=== PATIENT | female | born 1930 | race Caucasian/White ===

== ENCOUNTER 2016-11-21 16:00 | Emergency (ER) | payer OTHER, MEDICARE ==
[~2016-11-21] VITALS: Ht 174 cm; Wt 68.5 kg
[~2016-11-21 16:00] MED LIST: ACET325T96 PO; CHOL2000 PO; INVAV1 IV; TPRSR50 PO
[2016-11-21 16:14] VITALS: TEMP 36.8; Ht 174 cm; Wt 68.5 kg
[2016-11-21] MEDS ORDERED: SODIUM CHLORIDE 0.9% 1000ML 500 ML IV STA (17:04)
[2016-11-21] MEDS ORDERED: ONDANSETRON INJ 2 MG/ML 2 ML VIAL IV STA (17:04)
[2016-11-21] MEDS ORDERED: SODIUM CHLORIDE 0.9% 1000ML 1,000 ML IV STA (17:04)
[2016-11-21] MEDS ORDERED: PRMVC TOP (17:26)
[2016-11-21] MEDS ORDERED: LEVO1TAB33 PO (17:26)
[2016-11-21] MEDS ORDERED: GUAISYP4 PO (17:26)
[2016-11-21] MEDS ORDERED: TRMCR130WC TOP (17:26)
[2016-11-21 17:55] VITALS: O2SAT 95
--- NOTE | 2016-11-21 17:55 | DIAGNOSTIC IMAGING REPORT ---
SINGLE VIEW CHEST CLINICAL HISTORY: Weakness. Change in mental status. FINDINGS: 2 AP, portable, upright chest radiographs are compared to study dated 04/12/2016. The examination is degraded by portable technique and patient rotation. The heart is mildly enlarged and there is atherosclerotic calcification of the thoracic aorta. The pulmonary vasculature is noncongested. Enlargement the central pulmonary arteries suggests pulmonary artery hypertension. Emphysema and chronic interstitial thickening are similar to previous. There is no airspace consolidation or pleural effusion. No pneumothorax is seen. The skeletal structures are osteopenic. The bony thorax is grossly intact. IMPRESSION: Cardiac enlargement and emphysema. There is no acute cardiopulmonary abnormality. Electronically signed by: Austin Knott M.D. 11/21/2016 5:53 PM Dictated Date/Time: 11/21/2016 5:52 PM
[2016-11-21 18:06] LABS: BASO % 0.2 %; BASO ABS # 0.02 K/uL (0-0.2); COMPLETE YES; EOS % 1.2 %; HEMATOCRIT 40.7 % (37-47); IG% 0.8 %; LYMPH % 20.9 %; LYMPH ABS # 1.89 K/uL (1.2-3.4); MEAN CORPUSCULAR HEMOGLOBIN 31.3 pg (25-34); MEAN CORPUSCULAR HGB CONC 36.4 g/dl (32-36); MEAN PLATELET VOLUME 9.3 fL (7.4-10.4); MONO % 7.6 %; NEUT % 69.3 %; PLATELET COUNT 280 K/uL (130-400); RED BLOOD COUNT 4.73 M/uL (4.2-5.4); WHITE BLOOD COUNT 9.05 K/uL (4.8-10.8)
[2016-11-21 18:10] LABS: ALT/SGPT 19 U/L (12-78); AST/SGOT 16 U/L (15-37); BLOOD UREA NITROGEN 14 mg/dl (7-18); BUN/CREATININE RATIO 10.9 (10-20); CALCIUM 9.2 mg/dl (8.5-10.1); CARBON DIOXIDE 28 mmol/L (21-32); CHLORIDE 93 mmol/L (98-107); GLUCOSE 90 mg/dl (70-99); POTASSIUM 4.1 mmol/L (3.5-5.1); SODIUM 130 mmol/L (136-145)
[2016-11-21 18:21] LABS: ALB/GLOB RATIO 1.2 (0.9-2); ALKALINE PHOSPHATASE 50 U/L (45-117)
--- NOTE | 2016-11-21 18:24 | EMERGENCY ROOM VISIT NOTE ---
History Report prepared by Mitchell: Jossie Richardson Under the Supervision of: Dr. Austin Santos M.D. First contact with patient: 16:57 Chief Complaint: FLU LIKE SX Stated Complaint: FLU LIKE SYMPTOMS, WEAKNESS, KIDNEY ISSUES History of Present Illness The patient is an 86 year old female who presents to the Emergency Room with complaints of persistent weakness that began prior to arrival. She currently rates her discomfort as a 7/10 in severity. Per records, the patient has a history of resistant UTIs. Her last creatinine level was 1.6. Records indicate that the patient was recently started on Levaquin and was sent to the emergency department today for further evaluation and work up. The patient states that she has been experiencing a productive cough, fatigue, nausea, and calf cramping. The patient's daughter notes that the patient has been becoming short of breath with exertion. The patient denies any personal history of asthma or COPD. The patient states that she is unsure if her nausea is related to her UTI or the Levaquin she has been placed on. She states that she has been experiencing urinary symptoms. The patient states that she is unsure why she continues to get UTIs. She additionally notes a decrease in appetite and notes a four pound weight loss. The patient's daughter states that the patient was originally placed on the Levaquin for her productive cough, noting that they did not want the patient's symptoms progressing into pneumonia or bronchitis. The patient denies any fever or vomiting. Source of History: patient, family (daughter) Onset: prior to arrival Position: other (global) Symptom Intensity: 7/10 Quality: other (weakness) Timing: other (persistent) Associated Symptoms: + SOB, + cough, + fatigue, + nausea Note: Associated symptoms: decrease in appetite, weight gain of 4 lbs, calf cramping Review of Systems See HPI for pertinent positives & negatives. A total of 10 systems reviewed and were otherwise negative. Past Medical & Surgical Medical Problems: (1) Atrial fibrillation (2) CKD (chronic kidney disease), stage III (3) HLD (hyperlipidemia) (4) HTN (hypertension) (5) Hypothyroidism (6) UTI (urinary tract infection) Surgical Problems: (1) H/O breast biopsy (2) H/O colonoscopy (3) H/O cystoscopy (4) H/O tubal ligation (5) H/O vein stripping (6) History of appendectomy (7) History of hip replacement (8) History of partial hysterectomy Family History Noncontributory d/t age Social History Smoking Status: Former Smoker Drug Use: none Marital Status: Housing Status: lives with family Occupation Status: retired Current/Historical Medications Scheduled Aspirin (Aspirin EC Low Dose), 81 MG PO DAILY Estrogens, Conjugated (Premarin), 1 APPLN TOP 3XWK Levofloxacin (Levaquin), 500 MG PO DAILY Levothyroxine Sodium (Synthroid), 75 MCG PO DAILY Metoprolol Succinate (Metoprolol Succinate ER), 75 MG PO DAILY Simvastatin (Zocor), 20 MG PO QPM Triamcinolone Acet (Aristocort 0.1%), 1 APPLN TOP BID Scheduled PRN Guaifenesin/Codeine (Robitussin-Ac Syrup), 5 ML PO Q4H PRN for Cough Allergies Coded Allergies: Adhesives (Verified Allergy, Mild, SOME BANDAIDS MAKE SKIN AROUND IT RED, 04/18/16) Sulfa Drugs (Verified Allergy, Unknown, UNKNOWN RXN, 04/18/16) UNKNOWN REACTION Erythromycin (Verified Adverse Reaction, Mild, STOMACH PAIN, 04/18/16) Morphine (Verified Adverse Reaction, Mild, HALLUCINATIONS, 04/18/16) HALLUCINATIONS Physical Exam Vital Signs Date Time Temp Pulse Resp B/P Pulse Ox O2 Delivery O2 Flow Rate FiO2 11/21/16 21:50 67 15 191/90 96 11/21/16 21:22 67 15 191/90 96 Room Air 11/21/16 20:05 66 18 184/75 96 Room Air 11/21/16 17:55 95 Room Air 11/21/16 17:53 66 16 205/103 95 Room Air 11/21/16 17:23 71 11/21/16 16:14 36.8 91 18 160/98 97 Room Air Physical Exam GENERAL: Patient is in no acute distress. HEENT: No acute trauma, normocephalic atraumatic, mucous membranes moist, no nasal congestion, no scleral icterus. NECK: No stridor, no adenopathy, no meningismus, trachea is midline. LUNGS: Diminished breath sounds, no wheezing or rhonchi, breath sounds are equal HEART: Slightly irregular, normal rate. No murmurs. ABDOMEN: Soft, nontender, bowel sounds positive, no hernias, no peritonitis. EXTREMITIES: No cyanosis or edema, full range of motion of all the joints without pain or difficulty, no signs for acute trauma. NEUROLOGIC: Oriented x 3, no acute motor or sensory deficits, no focal weakness. SKIN: No rash, no jaundice, no diaphoresis. Medical Decision & Procedures ER Provider Diagnostic Interpretation: X-ray results as stated below per interpretation by me and the radiologist: SINGLE VIEW CHEST CLINICAL HISTORY: Weakness. Change in mental status. FINDINGS: 2 AP, portable, upright chest radiographs are compared to study dated 04/12/2016. The examination is degraded by portable technique and patient rotation. The heart is mildly enlarged and there is atherosclerotic calcification of the thoracic aorta. The pulmonary vasculature is noncongested. Enlargement the central pulmonary arteries suggests pulmonary artery hypertension. Emphysema and chronic interstitial thickening are similar to previous. There is no airspace consolidation or pleural effusion. No pneumothorax is seen. The skeletal structures are osteopenic. The bony thorax is grossly intact. IMPRESSION: Cardiac enlargement and emphysema. There is no acute cardiopulmonary abnormality. Electronically signed by: Austin Knott M.D. 11/21/2016 5:53 PM Dictated Date/Time: 11/21/2016 5:52 PM Laboratory Results 11/21/16 17:30 Red Blood Count 4.73, Mean Corpuscular Volume 86.0, Mean Corpuscular Hemoglobin 31.3, Mean Corpuscular Hemoglobin Concent 36.4, Mean Platelet Volume 9.3, Neutrophils (%) (Auto) 69.3, Lymphocytes (%) (Auto) 20.9, Monocytes (%) (Auto) 7.6, Eosinophils (%) (Auto) 1.2, Basophils (%) (Auto) 0.2, Neutrophils # (Auto) 6.27, Lymphocytes # (Auto) 1.89, Monocytes # (Auto) 0.69, Eosinophils # (Auto) 0.11, Basophils # (Auto) 0.02 11/21/16 17:30 Test 11/21/16 17:30 11/21/16 19:05 White Blood Count 9.05 K/uL (4.8-10.8) Red Blood Count 4.73 M/uL (4.2-5.4) Hemoglobin 14.8 g/dL (12.0-16.0) Hematocrit 40.7 % (37-47) Mean Corpuscular Volume 86.0 fL (80-100) Mean Corpuscular Hemoglobin 31.3 pg (25-34) Mean Corpuscular Hemoglobin Concent 36.4 g/dl (32-36) Platelet Count 280 K/uL (130-400) Mean Platelet Volume 9.3 fL (7.4-10.4) Neutrophils (%) (Auto) 69.3 % Lymphocytes (%) (Auto) 20.9 % Monocytes (%) (Auto) 7.6 % Eosinophils (%) (Auto) 1.2 % Basophils (%) (Auto) 0.2 % Neutrophils # (Auto) 6.27 K/uL (1.4-6.5) Lymphocytes # (Auto) 1.89 K/uL (1.2-3.4) Monocytes # (Auto) 0.69 K/uL (0.11-0.59) Eosinophils # (Auto) 0.11 K/uL (0-0.5) Basophils # (Auto) 0.02 K/uL (0-0.2) RDW Standard Deviation 40.2 fL (36.4-46.3) RDW Coefficient of Variation 12.5 % (11.5-14.5) Immature Granulocyte % (Auto) 0.8 % Immature Granulocyte # (Auto) 0.07 K/uL (0.00-0.02) Anion Gap 9.0 mmol/L (3-11) Est Creatinine Clear Calc Drug Dose 31.9 ml/min Estimated GFR () 43.0 Estimated GFR (Non- 37.1 BUN/Creatinine Ratio 10.9 (10-20) Calcium Level 9.2 mg/dl (8.5-10.1) Total Bilirubin 1.0 mg/dl (0.2-1) Aspartate Amino Transf (AST/SGOT) 16 U/L (15-37) Alanine Aminotransferase (ALT/SGPT) 19 U/L (12-78) Alkaline Phosphatase 50 U/L (45-117) Total Creatine Kinase 80 U/L (26-192) Troponin I < 0.015 ng/ml (0-0.045) Total Protein 7.4 gm/dl (6.4-8.2) Albumin 4.1 gm/dl (3.4-5.0) Globulin 3.3 gm/dl (2.5-4.0) Albumin/Globulin Ratio 1.2 (0.9-2) Thyroid Stimulating Hormone (TSH) 3.140 uIu/ml (0.300-4.500) Free Thyroxine 1.55 ng/dl (0.80-1.60) Urine Color YELLOW Urine Appearance CLEAR (CLEAR) Urine pH 6.0 (4.5-7.5) Urine Specific [place] 1.006 (1.000-1.030) Urine Protein NEG (NEG) Urine Glucose (UA) NEG (NEG) Urine Ketones TRACE (NEG) Urine Occult Blood NEG (NEG) Urine Nitrite NEG (NEG) Urine Bilirubin NEG (NEG) Urine Urobilinogen NEG (NEG) Urine Leukocyte Esterase SMALL (NEG) Urine WBC (Auto) 5-10 /hpf (0-5) Urine RBC (Auto) 0-4 /hpf (0-4) Urine Hyaline Casts (Auto) 0 /lpf (0-5) Urine Epithelial Cells (Auto) >30 /lpf (0-5) Urine Bacteria (Auto) NEG (NEG) Laboratory results reviewed by me. Medications Administered Medications (Trade) Dose Ordered Sig/Freddy Route Start Time Stop Time Status Last Admin Dose Admin Sodium Chloride 500 ml @ 999 mls/hr Q31M STAT IV 11/21/16 17:04 11/21/16 17:34 DC 11/21/16 17:50 999 MLS/HR Sodium Chloride (Nss 1000ml) 1,000 ml @ 200 mls/hr Q5H STAT IV 11/21/16 17:04 11/21/16 21:56 DC 11/21/16 17:04 200 MLS/HR Ondansetron HCl 4 mg 4 mg NOW STAT IV 11/21/16 17:04 11/21/16 17:08 DC 11/21/16 17:49 4 MG Sodium Chloride (Nss 500ml) 500 ml @ 999 mls/hr Q31M STAT IV 11/21/16 19:07 11/21/16 19:37 DC 11/21/16 19:07 999 MLS/HR Albuterol (Ventolin Hfa Inhaler) 2 puffs NOW ONCE INH 11/21/16 21:15 11/21/16 21:16 DC 11/21/16 21:22 2 PUFFS ECG Indication: weakness Rate (beats per minute): 75 Rhythm: sinus rhythm Findings: 1st degree AV block, no acute ischemic change, no ectopy ED Course 1699: The patient was evaluated in room C7. A complete history and physical exam was performed. 1703: Ordered Zofran Inj 4 mg IV, Sodium Chloride 1000 ml @ 200 mls/hr IV, Sodium Chloride 500 ml @ 999 mls/hr IV. 1917: I reevaluated the patient and updated her on her exam findings. We are waiting on her urine sample. Medical Decision The patient is an 86 year old female who presents to the ED with complaints of weakness. Differential diagnoses considered include dehydration, bronchitis or pneumonia, cardiac ischemia, electrolyte imbalance, anemia, renal failure, UTI. There is no leukocytosis or concerning anemia. Sodium slightly low but not critical. No kidney failure. There was no hepatitis. The patient appears to be in a euthyroid state. Chest x-ray does not show pneumonia or CHF. EKG shows a sinus rhythm, no acute ischemia. Cardiac enzyme testing times one is not consistent with acute cardiac injury. Urinalysis does not show infection. The patient received IV saline for hydration, she was given albuterol via MDI, she received IV Zofran. The patient has an acute bronchitis. This has caused her cough, weakness and other complaints. She is not toxic or febrile. I do think she can be discharged. She was encouraged by her laboratory results. She can see her doctor for a recheck in a few days, she should return here if worsening. I do not think antibiotics are indicated. Impression Primary Impression: Acute bronchitis Additional Impressions: Weakness Dehydration Hyponatremia Scribe Attestation The scribe's documentation has been prepared under my direction and personally reviewed by me in its entirety. I confirm that the note above accurately reflects all work, treatment, procedures, and medical decision making performed by me. Departure Information Dispostion Home / Self-Care Referrals Too Mena D.O. (PCP) Patient Instructions My [facility] Additional Instructions rest stay well hydrated you may want to salt your food more albuterol 2-3 puffs every 4 hours while awake see gabriel munoz for a recheck--call in the am for an appt return if worsening Problem Qualifiers
[2016-11-21] MEDS ORDERED: SODIUM CHLORIDE 0.9% 500ML 500 ML IV STA (19:07)
[2016-11-21] MEDS ORDERED: ASPEC81 PO (19:14)
[2016-11-21 20:34] LABS: URINE APPEARANCE CLEAR (CLEAR); URINE BILIRUBIN NEG (NEG); URINE COLOR YELLOW; URINE EPITHELIAL CELL AUTO >30 /lpf (0-5); URINE NITRITE NEG (NEG); URINE SPECIFIC GRAVITY 1.006 (1.000-1.030); UROBILINOGEN NEG (NEG); ZZUR CULT IF INDIC CLEAN CATCH NO
[2016-11-21 20:36] LABS: MANUAL MICROSCOPIC REQUIRED? NO; REVIEW REQ? NO
[2016-11-21] MEDS ORDERED: PROMETHAZINE HCL INJ 6.25 MG in SODIUM CHLORIDE 0.9% 50ML 50 ML IV STA (20:39)
[2016-11-21] MEDS ORDERED: ALBUTEROL HFA 8 GM INHALER INH ONE (21:15)
[2016-11-21] MEDS ORDERED: LEVO75TA PO (21:32)
[2016-11-21] MEDS ORDERED: SIMV20TA2 PO (21:32)
[2016-11-21 21:50] VITALS: BP 191/90; PULSE 67; O2SAT 96
== END 2016-11-21 21:52 | disposition home or self-care (01) ==
LOC: C.EDB 16:02 → C.EDC 21:52
DX: J20.9 Acute bronchitis, unspecified (principal); R53.1 Weakness; E86.0 Dehydration; E87.1 Hypo-osmolality and hyponatremia; E03.9 Hypothyroidism, unspecified; I12.9 Hypertensive chronic kidney disease with stage 1 through stage 4 chronic kidney disease, or unspecified chronic kidney disease; N18.3 Chronic kidney disease, stage 3 (moderate); I48.91 Unspecified atrial fibrillation; Z87.891 Personal history of nicotine dependence; Z98.51 Tubal ligation status; Z90.711 Acquired absence of uterus with remaining cervical stump; Z96.649 Presence of unspecified artificial hip joint; Z98.890 Other specified postprocedural states; Z90.89 Acquired absence of other organs; Z79.82 Long term (current) use of aspirin; Z79.899 Other long term (current) drug therapy

== ENCOUNTER 2017-03-20 11:30 | Emergency (ER) | payer OTHER, MEDICARE ==
[~2017-03-20] VITALS: Ht 172.7 cm; Wt 64.0 kg
[~2017-03-20 11:30] MED LIST changes: -ACET325T96 PO; +ASPEC81 PO; -CHOL2000 PO; +GUAISYP4 PO; -INVAV1 IV; +LEVO1TAB33 PO; +LEVO75TA PO; +PRMVC TOP; +SIMV20TA2 PO; +TRMCR130WC TOP
[2017-03-20 11:34] VITALS: Ht 172.7 cm; Wt 64.0 kg
[2017-03-20] MEDS ORDERED: ASCA500 PO (12:00)
[2017-03-20] MEDS ORDERED: ACET-1256 PO (12:00)
[2017-03-20] MEDS ORDERED: VITACAP9 PO (12:00)
[2017-03-20] MEDS ORDERED: FAMOTIDINE 20MG/102 ML D5W IV STA (12:53)
[2017-03-20] MEDS ORDERED: SODIUM CHLORIDE 0.9% 1000ML 1,000 ML IV STA (12:53)
[2017-03-20] MEDS ORDERED: PANTOprazole INJ 40 MG in SYRINGE 0 ML IV ONE (13:00)
[2017-03-20 13:06] LABS: BASO % 0.5 %; BASO ABS # 0.03 K/uL (0-0.2); COMPLETE YES; HEMATOCRIT 40.1 % (37-47); IG% 0.3 %; LYMPH % 15.6 %; LYMPH ABS # 0.96 K/uL (1.2-3.4); MEAN CELL VOLUME 90.5 fL (80-100); MEAN CORPUSCULAR HEMOGLOBIN 31.2 pg (25-34); MEAN CORPUSCULAR HGB CONC 34.4 g/dl (32-36); MEAN PLATELET VOLUME 9.4 fL (7.4-10.4); MONO % 11.2 %; NEUT % 71.4 %; PLATELET COUNT 224 K/uL (130-400); RED BLOOD COUNT 4.43 M/uL (4.2-5.4); WHITE BLOOD COUNT 6.17 K/uL (4.8-10.8)
[2017-03-20 13:12] LABS: ALT/SGPT 19 U/L (12-78); BLOOD UREA NITROGEN 13 mg/dl (7-18); BUN/CREATININE RATIO 11.4 (10-20); CALCIUM 9.3 mg/dl (8.5-10.1); CARBON DIOXIDE 31 mmol/L (21-32); CHLORIDE 101 mmol/L (98-107); GLUCOSE 94 mg/dl (70-99); POTASSIUM 3.3 mmol/L (3.5-5.1); SODIUM 139 mmol/L (136-145)
[2017-03-20 13:17] LABS: ALKALINE PHOSPHATASE 41 U/L (45-117); AST/SGOT 16 U/L (15-37)
--- NOTE | 2017-03-20 13:41 | DIAGNOSTIC IMAGING REPORT ---
ABDOMEN 2VIEW W/PA CHEST RTN CLINICAL HISTORY: ABDOMINAL PAIN/GI pain. Nausea. COMPARISON STUDY: 11/21/2016 FINDINGS: The soft tissues, psoas shadows, renal outlines and intestinal gas pattern appear normal. There is no evidence for bowel obstruction. There is no evidence for free intraperitoneal air. No abnormal abdominal calcifications are seen. A frontal view of the chest was performed and is unremarkable. IMPRESSION: Normal study. Electronically signed by: Gerson Zayas M.D. 03/20/2017 1:40 PM Dictated Date/Time: 03/20/2017 1:39 PM
[2017-03-20 15:22] LABS: URINE APPEARANCE CLEAR (CLEAR); URINE BILIRUBIN NEG (NEG); URINE COLOR YELLOW; URINE EPITHELIAL CELL AUTO 20-30 /lpf (0-5); URINE NITRITE NEG (NEG); URINE PH 5.5 (4.5-7.5); URINE SPECIFIC GRAVITY 1.011 (1.000-1.030); UROBILINOGEN NEG (NEG)
[2017-03-20 15:23] LABS: MANUAL MICROSCOPIC REQUIRED? NO; REVIEW REQ? NO
[2017-03-20] MEDS ORDERED: MBXC PO (16:27)
[2017-03-20] MEDS ORDERED: NYSS/ PO (16:27)
[2017-03-20] MEDS ORDERED: OMEP20CA9 PO (16:27)
[2017-03-20 16:55] VITALS: BP 210/109; PULSE 80; TEMP 36.8; O2SAT 97
--- NOTE | 2017-03-20 17:51 | EMERGENCY ROOM VISIT NOTE ---
History Report prepared by Mitchell: Augusta Mclean Under the Supervision of: Dr. James Oneil D.O. First contact with patient: 12:40 Chief Complaint: GI ASSESSMENT Stated Complaint: TROUBLE SWALLOWING, MULTIPLE SX, POSS. DEHYDRATION History of Present Illness The patient is an 86 year old female who presents to the Emergency Room with complaints of worsening trouble swallowing starting a few weeks ago. The patient reports that she was sent here from another doctor. She states that they believe that she may have a touch of pneumonia. She states she came to the ED because she thinks she is dehydrated. She states that she has not been able to even take in water. She notes that she was on a series of antibiotics starting 17 days ago for a UTI. She reports that she stopped taking one of them last week because it seemed that it worsened her urinary symptoms. She notes that she is unsure if something is stuck. The patient complains of pain in her legs. She denies a sore throat, chest pain, shortness of breath, nausea, vomiting, and swelling in her legs. Source of History: patient Onset: few weeks ago Position: throat Quality: other (something is stuck) Timing: worsening Associated Symptoms: + urinary symptoms, No sorethroat, No chest pain, No SOB, No nausea, No vomiting Note: The patient complains of pain in her legs. The patient denies swelling in her legs. Review of Systems See HPI for pertinent positives & negatives. A total of 10 systems reviewed and were otherwise negative. Past Medical & Surgical Medical Problems: (1) Atrial fibrillation (2) CKD (chronic kidney disease), stage III (3) HLD (hyperlipidemia) (4) HTN (hypertension) (5) Hypothyroidism (6) UTI (urinary tract infection) Surgical Problems: (1) H/O breast biopsy (2) H/O colonoscopy (3) H/O cystoscopy (4) H/O tubal ligation (5) H/O vein stripping (6) History of appendectomy (7) History of hip replacement (8) History of partial hysterectomy Family History Noncontributory d/t age Social History Smoking Status: Former Smoker Drug Use: none Marital Status: Housing Status: lives with family Occupation Status: retired Current/Historical Medications Scheduled Acetaminophen (Tylenol), 1,000 MG PO UD Ascorbic Acid (Vitamin C), 2 TABS PO BID Aspirin (Aspirin EC Low Dose), 81 MG PO DAILY Estrogens, Conjugated (Premarin), 1 APPLN TOP 3XWK Levothyroxine Sodium (Synthroid), 75 MCG PO DAILY Magic Swizzle (Magic Swizzle - SUCRALFA/ALUM/MAG/DIPHEN/LIDO), 3-4 TSP PO ACHS Metoprolol Succinate (Metoprolol Succinate ER), 50 MG PO DAILY Nystatin (Nystatin Suspension), 5 ML PO QID Omeprazole (Prilosec), 20 MG PO DAILY Simvastatin (Zocor), 20 MG PO QPM Triamcinolone Acet (Aristocort 0.1%), 1 APPLN TOP BID Vitamins C & E (Cranberry Urinary Comfort), 1 CAP PO QAM Allergies Coded Allergies: Adhesives (Verified Allergy, Mild, SOME BANDAIDS MAKE SKIN AROUND IT RED, 03/20/17) Sulfa Drugs (Verified Allergy, Unknown, UNKNOWN RXN, 03/20/17) UNKNOWN REACTION Erythromycin (Verified Adverse Reaction, Mild, STOMACH PAIN, 03/20/17) Morphine (Verified Adverse Reaction, Mild, HALLUCINATIONS, 03/20/17) HALLUCINATIONS Physical Exam Vital Signs Date Time Temp Pulse Resp B/P (MAP) Pulse Ox O2 Delivery O2 Flow Rate FiO2 03/20/17 16:55 36.8 80 18 210/109 97 03/20/17 15:40 73 21 95 03/20/17 15:35 81 23 98 03/20/17 15:31 174/87 03/20/17 15:30 70 22 96 03/20/17 15:25 74 23 96 03/20/17 15:20 75 22 96 03/20/17 15:15 74 19 96 03/20/17 15:10 76 22 96 03/20/17 15:05 71 20 96 03/20/17 15:01 178/99 03/20/17 15:00 75 24 96 03/20/17 14:55 75 21 95 03/20/17 14:50 74 18 93 03/20/17 14:45 74 17 96 03/20/17 14:40 73 16 95 03/20/17 14:35 73 21 97 03/20/17 14:31 195/101 03/20/17 14:30 74 19 97 03/20/17 14:25 76 16 98 03/20/17 14:20 75 20 97 03/20/17 14:15 76 22 99 03/20/17 14:05 85 21 172/105 96 03/20/17 14:05 91 20 172/105 96 03/20/17 14:02 221/153 03/20/17 14:00 81 20 98 03/20/17 13:55 74 21 98 03/20/17 13:50 76 20 98 03/20/17 13:45 81 20 98 03/20/17 13:43 197/162 03/20/17 13:15 80 21 98 03/20/17 13:10 77 21 96 03/20/17 13:05 88 23 98 03/20/17 13:01 170/70 03/20/17 13:00 77 24 97 03/20/17 12:55 83 19 96 03/20/17 12:50 76 19 96 03/20/17 12:45 77 17 98 03/20/17 12:42 79 03/20/17 12:40 166/77 03/20/17 11:34 36.8 83 18 160/99 100 Room Air Physical Exam GENERAL: Patient is awake, alert, and in no acute distress. Patient is resting comfortably and showing no signs of anxiety EYES: The conjunctivae are clear. The pupils are round and reactive. EARS, NOSE, MOUTH AND THROAT: The nose is without any evidence of any deformity. Mucous membranes are moist tongue is midline NECK: The neck is nontender and supple. RESPIRATORY: Normal respiratory effort is noted there is no evidence of wheezing rhonchi or rales CARDIOVASCULAR: Regular rate and rhythm noted there no murmurs rubs or gallops normal S1 normal S2 GASTROINTESTINAL: The abdomen is soft. Bowel sounds are present in all quadrants. Abdomen is nontender MUSCULOSKELETAL/EXTREMITIES: There is no evidence of gross deformity full range of motion is noted in the hips and shoulders SKIN: There is no obvious evidence of any rash. There are no petechiae, pallor or cyanosis noted. Pedal edema bilaterally. NEUROLOGIC: Patient is awake alert and oriented x3 strength is symmetric patellar reflexes are 2+ bilaterally Medical Decision & Procedures ER Provider Diagnostic Interpretation: Radiology results as stated below per my review and radiologist interpretation: ABDOMEN 2VIEW W/PA CHEST RTN CLINICAL HISTORY: ABDOMINAL PAIN/GI pain. Nausea. COMPARISON STUDY: 11/21/2016 FINDINGS: The soft tissues, psoas shadows, renal outlines and intestinal gas pattern appear normal. There is no evidence for bowel obstruction. There is no evidence for free intraperitoneal air. No abnormal abdominal calcifications are seen. A frontal view of the chest was performed and is unremarkable. IMPRESSION: Normal study. Electronically signed by: Gerson Zayas M.D. 03/20/2017 1:40 PM Dictated Date/Time: 03/20/2017 1:39 PM Laboratory Results 03/20/17 12:20 Red Blood Count 4.43, Mean Corpuscular Volume 90.5, Mean Corpuscular Hemoglobin 31.2, Mean Corpuscular Hemoglobin Concent 34.4, Mean Platelet Volume 9.4, Neutrophils (%) (Auto) 71.4, Lymphocytes (%) (Auto) 15.6, Monocytes (%) (Auto) 11.2, Eosinophils (%) (Auto) 1.0, Basophils (%) (Auto) 0.5, Neutrophils # (Auto ) 4.41, Lymphocytes # (Auto) 0.96, Monocytes # (Auto) 0.69, Eosinophils # (Auto ) 0.06, Basophils # (Auto) 0.03 03/20/17 12:20 Test 03/20/17 12:20 03/20/17 14:10 White Blood Count 6.17 K/uL (4.8-10.8) Red Blood Count 4.43 M/uL (4.2-5.4) Hemoglobin 13.8 g/dL (12.0-16.0) Hematocrit 40.1 % (37-47) Mean Corpuscular Volume 90.5 fL (80-100) Mean Corpuscular Hemoglobin 31.2 pg (25-34) Mean Corpuscular Hemoglobin Concent 34.4 g/dl (32-36) Platelet Count 224 K/uL (130-400) Mean Platelet Volume 9.4 fL (7.4-10.4) Neutrophils (%) (Auto) 71.4 % Lymphocytes (%) (Auto) 15.6 % Monocytes (%) (Auto) 11.2 % Eosinophils (%) (Auto) 1.0 % Basophils (%) (Auto) 0.5 % Neutrophils # (Auto) 4.41 K/uL (1.4-6.5) Lymphocytes # (Auto) 0.96 K/uL (1.2-3.4) Monocytes # (Auto) 0.69 K/uL (0.11-0.59) Eosinophils # (Auto) 0.06 K/uL (0-0.5) Basophils # (Auto) 0.03 K/uL (0-0.2) RDW Standard Deviation 42.5 fL (36.4-46.3) RDW Coefficient of Variation 12.9 % (11.5-14.5) Immature Granulocyte % (Auto) 0.3 % Immature Granulocyte # (Auto) 0.02 K/uL (0.00-0.02) Prothrombin Time 11.0 SECONDS (9.0-12.0) Prothromb Time International Ratio 1.0 (0.9-1.1) Activated Partial Thromboplast Time 27.0 SECONDS (21.0-31.0) Partial Thromboplastin Ratio 1.0 Anion Gap 7.0 mmol/L (3-11) Est Creatinine Clear Calc Drug Dose 37.0 ml/min Estimated GFR () 52.6 Estimated GFR (Non- 45.4 BUN/Creatinine Ratio 11.4 (10-20) Calcium Level 9.3 mg/dl (8.5-10.1) Total Bilirubin 0.6 mg/dl (0.2-1) Direct Bilirubin 0.2 mg/dl (0-0.2) Aspartate Amino Transf (AST/SGOT) 16 U/L (15-37) Alanine Aminotransferase (ALT/SGPT) 19 U/L (12-78) Alkaline Phosphatase 41 U/L (45-117) Troponin I < 0.015 ng/ml (0-0.045) Total Protein 7.0 gm/dl (6.4-8.2) Albumin 3.8 gm/dl (3.4-5.0) Lipase 234 U/L (73-393) Urine Color YELLOW Urine Appearance CLEAR (CLEAR) Urine pH 5.5 (4.5-7.5) Urine Specific [place] 1.011 (1.000-1.030) Urine Protein NEG (NEG) Urine Glucose (UA) NEG (NEG) Urine Ketones TRACE (NEG) Urine Occult Blood TRACE (NEG) Urine Nitrite NEG (NEG) Urine Bilirubin NEG (NEG) Urine Urobilinogen NEG (NEG) Urine Leukocyte Esterase MODERATE (NEG) Urine WBC (Auto) 5-10 /hpf (0-5) Urine RBC (Auto) 0-4 /hpf (0-4) Urine Hyaline Casts (Auto) 0 /lpf (0-5) Urine Epithelial Cells (Auto) 20-30 /lpf (0-5) Urine Bacteria (Auto) NEG (NEG) Laboratory results per my review. Medications Administered Medications (Trade) Dose Ordered Sig/Freddy Route Start Time Stop Time Status Last Admin Dose Admin Sodium Chloride 1,000 ml @ 999 mls/hr Q1H1M STAT IV 03/20/17 12:53 03/20/17 13:53 DC 03/20/17 12:53 999 MLS/HR Pantoprazole Sodium 40 mg/ Syringe 10 ml @ 5 mls/min NOW ONCE IV 03/20/17 13:00 03/20/17 13:01 DC 03/20/17 13:14 5 MLS/MIN Famotidine (Pepcid 20mg/100 ml) 20 mg ONE STAT IV 03/20/17 12:53 03/20/17 12:54 DC 03/20/17 13:14 20 MG ECG Indication: other (diffiuclty swallowing) Rate (beats per minute): 78 Rhythm: normal sinus Findings: no ectopy, other (No acute ST abnormalities) Comparison ECG Date: 11/21/2016 Change: no significant change ED Course 1240: The patient was evaluated in room B8. A complete history and physical examination were performed. 1253: Ordered Famotidine 20 mg IV, NSS 1000 ml @ 999 mls/hr IV. 1300: Ordered Pantoprazole Sodium 40 mg/ Syringe 10 ml @ 5 mls/min IV. 1534: I reevaluated the patient and she is resting comfortably. 1542: I discussed the patient's case with Dr. Soto. He will come evaluate the patient. 1639: Upon reevaluation, the patient is resting comfortably. I discussed the results and treatment plan with her. The patient verbalized agreement of the treatment plan. The patient was discharged home. Medical Decision Medication Reconciliation: I attest that I have personally reviewed the patient' s current medications list. Blood pressure screening: Patient was found to have an elevated blood pressure and was referred to their primary doctor for recheck and further treatment. Differential diagnosis: Etiologies such as viral syndrome, tonsillitis, streptococcal pharyngitis, mononucleosis, peritonsillar abscess, retropharyngeal abscess, otitis, pneumonia , influenza, as well as others were entertained. The patient is an 86-year-old female who presented to emergency department for an evaluation of dysphagia. The patient states that she's been having problems swallowing for the last 2 weeks. She did have a recent urinary tract infection and had 2 different antibiotics. I'm unsure if the patient has pill esophagitis or possibly candidiasis because of the antibiotic use. She is able to tolerate her secretions and is able to drink liquids. She saw her primary care physician today and was sent to the emergency department for further evaluation. She was evaluated by the on-call [facility] legal librarian today. She was reevaluated multiple times. She was treated with IV fluids in the emergency department. She was started on proton pump inhibitors. She was also started on nystatin solution. She was encouraged to continue all medications as prescribed and follow-up with a legal librarian next week as scheduled. Otherwise she was encouraged to drink plenty clear liquids and return to the emergency department immediately if symptoms change worsen or the need arises. Consults Time Called: 1540 Consulting Physician: Dr. Soto Returned Call: [phone] I discussed the patient's case with Dr. Soto. He will come evaluate the patient. Impression Primary Impression: Esophagitis Scribe Attestation The scribe's documentation has been prepared under my direction and personally reviewed by me in its entirety. I confirm that the note above accurately reflects all work, treatment, procedures, and medical decision making performed by me. Departure Information Dispostion Home / Self-Care Prescriptions Magic Swizzle (Magic Swizzle - SUCRALFA/ALUM/MAG/DIPHEN/LIDO) 240 Ml Susp 3-4 TSP PO ACHS, #240 ML 100ml Sucralfate 50ml Maalox 50ml Diphenhydramine 40ml 2% Aq. Lidocaine Swish and Swallow Prov: James Oneil, DO 03/20/17 Omeprazole (PRILOSEC) 20 Mg Cap 20 MG PO DAILY, #30 CAP Prov: James Oneil, DO 03/20/17 Nystatin (Nystatin Suspension) 1 Ml Susp 5 ML PO QID, #300 ML Prov: James Oneil, DO 03/20/17 Referrals Too Mena D.OPorter (PCP) Forms HOME CARE DOCUMENTATION FORM, IMPORTANT VISIT INFORMATION Patient Instructions My [facility] Additional Instructions Continue all medications as prescribed. Drink plenty clear liquids. Follow-up with the legal librarian next Friday as scheduled. Follow-up with your family as soon as possible.
--- NOTE | 2017-03-21 15:40 | Pharmacy Progress Note ---
ED Pharmacist Progress Note Date of Service: Mar 21, 2017. [facility] pharmacy called stating they did not have 2% aqueous Lidocaine to compound the Magic Mouth Wash w/ Carfarate. I reviewed the Rx sent to their pharmacy. I advised the pharmacist that the 2% viscous lidocaine could be substituted in this formula as this is what the pharmacy dose here. Pharmacist agreed to change Rx and compound as directed.
== END 2017-03-20 16:56 | disposition home or self-care (01) ==
LOC: C.EDB 11:31
DX: K20.9 Esophagitis, unspecified (principal); I48.91 Unspecified atrial fibrillation; N18.3 Chronic kidney disease, stage 3 (moderate); E78.5 Hyperlipidemia, unspecified; I10 Essential (primary) hypertension; E03.9 Hypothyroidism, unspecified; Z87.891 Personal history of nicotine dependence; Z79.82 Long term (current) use of aspirin; Z79.899 Other long term (current) drug therapy